=== PATIENT | male | born 1970 | race Two or more races ===

== ENCOUNTER 2020-10-03 17:55 | Emergency (ER) | payer OTHER ==
[~2020-10-03] VITALS: Ht 182.9 cm; Wt 81.6 kg
[~2020-10-03 17:55] MED LIST: PAXIL CR25 MG
[2020-10-03] MEDS ORDERED: AMOX-CLAV 875-1 EACH PO (20:15)
== END 2020-10-03 20:17 | disposition home or self-care (01) ==
LOC: ER 17:55
DX: S91.311A Laceration without foreign body, right foot, initial encounter (principal); W31.89XA Contact with other specified machinery, initial encounter; Y93.H9 Activity, other involving exterior property and land maintenance, building and construction; Y92.018 Other place in single-family (private) house as the place of occurrence of the external cause; Y99.8 Other external cause status

== ENCOUNTER 2021-07-20 10:29 | Emergency (ER) | payer OTHER ==
[~2021-07-20] VITALS: Ht 182.9 cm; Wt 83.5 kg
[~2021-07-20 10:29] MED LIST changes: +AMOX-CLAV 875-1 EACH PO
[2021-07-20] MEDS ORDERED: PAROXETINE CR37.5 MG PO (10:33)
== END 2021-07-20 13:07 | disposition home or self-care (01) ==
LOC: ER 10:29
DX: M54.50 Low back pain, unspecified (principal)

== ENCOUNTER 2022-10-21 17:22 | Emergency (ER) | payer OTHER ==
[~2022-10-21] VITALS: Ht 160 cm; Wt 79.4 kg
[~2022-10-21 17:22] MED LIST changes: +PAROXETINE CR37.5 MG PO
[2022-10-21] MEDS ORDERED: DICLOFENAC SODI75 MG PO (22:13)
[2022-10-21] MEDS ORDERED: AMOX-CLAV 875-1 EAC1 PO (22:13)
== END 2022-10-21 22:25 | disposition home or self-care (01) ==
LOC: ER 17:22
DX: S81.052A Open bite, left knee, initial encounter (principal); W54.0XXA Bitten by dog, initial encounter; Y93.89 Activity, other specified; Y92.89 Other specified places as the place of occurrence of the external cause; F41.0 Panic disorder [episodic paroxysmal anxiety]

== ENCOUNTER 2022-11-21 17:23 | Emergency (ER) | payer OTHER ==
[~2022-11-21] VITALS: Ht 182.9 cm; Wt 80.7 kg
[~2022-11-21 17:23] MED LIST changes: +AMOX-CLAV 875-1 EAC1 PO; +DICLOFENAC SODI75 MG PO
[2022-11-21 19:26] LABS: HEMATOCRIT 39.3 % (39.0-48.0); HEMOGLOBIN 12.6 g/dL (13-16.00); MEAN CORPUSCULAR HEMOGLOBIN 18.9 pg (27.00-32.0); MEAN CORPUSCULAR HGB CONC 31.9 g/dl (32.0-36.0); PLATELET COUNT 177 K/uL (150-450); RED BLOOD COUNT 6.66 M/uL (4.00-6.00); RED CELL DISTRIBUTION WIDTH 16.4 % (11.5-14.5)
[2022-11-21 19:51] LABS: ALBUMIN 4.8 gm/dL (3.4-5.0); BILIRUBIN TOTAL 1.27 mg/dL (0.3-1.2); CALCIUM 9.6 mg/dL (8.5-10.1); CREATININE SERUM 1.12 mg/dL (0.70-1.30); GFR 69.12; POTASSIUM 4.31 mEq/L (3.5-5.1); TOTAL PROTEIN 8.8 gm/dL (6.4-8.2)
[2022-11-21] MEDS ORDERED: PEPCID AC20 MG PO (21:28)
[2022-11-21] MEDS ORDERED: ONDANSETRON ODT8 MG PO (21:28)
== END 2022-11-21 21:35 | disposition home or self-care (01) ==
LOC: ER 17:24
PROVIDERS: General Practice
DX: R19.7 Diarrhea, unspecified (principal); R11.2 Nausea with vomiting, unspecified; Z20.822 Contact with and (suspected) exposure to COVID-19